=== PATIENT | female | born 1960 | race Caucasian/White ===

== ENCOUNTER 2017-03-10 17:49 | Inpatient (IN) | payer MEDICAID ==
[~2017-03-10] VITALS: Ht 152.4 cm; Wt 39.5 kg
[2017-03-10 08:00] VITALS: BP 99/60
--- NOTE | 2017-03-10 18:05 | NUR ---
BBRA FROM CLINIC FOR FLU LIKE SYMPTOMS SINCE WEDNESDAY. PATIENT RECEIVED AAO4. APPEARS IN NO APPARNT DISTRESS. AFEBRILE. VSS
[2017-03-10] MEDS ORDERED: IV NS 0.9% 1,000 ML BAG IV ONE ×2 (18:30→19:30)
[2017-03-10] MEDS ORDERED: ACETAMINOPHEN ES 500 MG TABLET PO ONE (18:30)
[2017-03-10] MEDS ORDERED: IBUPROFEN 600 MG TABLET PO ONE ×2 (18:30→18:40)
[2017-03-10] MEDS ORDERED: ACETAMINOPHEN ES 500 MG TABLET ONE ×2 (18:40→21:51)
[2017-03-10 18:45] LABS: BASOPHILS % (AUTO) 0.2 % (0.0-2.0); EOSINOPHILS # (AUTO) 0.2 /CMM (0.0-0.7); EOSINOPHILS % (AUTO) 0.8 % (0.0-6.0); HEMATOCRIT 36 % (33-45); HEMOGLOBIN 12.3 g/dL (11.5-14.8); LYMPHOCYTES # (AUTO) 1.5 /CMM (0.8-4.8); LYMPHOCYTES % (AUTO) 6.9 % (20.0-44.0); MEAN CORPUSCULAR HEMOGLOBIN 30 PG (26.0-33.0); MEAN CORPUSCULAR HGB CONC 34 g/dl (31.0-36.0); MEAN CORPUSCULAR VOLUME 88 fL (82-100); MONOCYTES # (AUTO) 1.2 /CMM (0.1-1.30); MONOCYTES % (AUTO) 5.7 % (2.0-12.0); NEUTROPHILS # (AUTO) 18.8 /CMM (1.8-8.9); NEUTROPHILS % (AUTO) 86.4 % (43.0-81.0); PLATELET COUNT (AUTO) 292 /CMM (150-450); RDW COEFFICIENT OF VARIATION 11.6 (11.5-15.0); RED BLOOD CELL COUNT(AUTO) 4.13 MIL/uL (4.0-5.2); WHITE BLOOD COUNT (AUTO) 21.7 K/uL (4.3-11.0)
[2017-03-10 18:48] LABS: APPEARANCE,URINE Clear (CLEAR); BILIRUBIN,URINE Negative (NEGATIVE); BLOOD, URINE Negative Ery/uL (NEGATIVE); COLOR,URINE Yellow (YELLOW); KETONES,URINE Negative (NEGATIVE); LEUKOCYTE ESTERASE ,URINE Negative (NEGATIVE); NITRITE, URINE Negative (NEGATIVE); PH,URINE 5.5 (5.0-8.0); PROTEIN,URINE 100 mg/dl (NEGATIVE); UGLUCOSE 500 MG/DL mg/dL (NEGATIVE)
--- NOTE | 2017-03-10 18:54 | NUR ---
BLOOD SAMPLE AND URINE SAMPLE SENT TO LAB
[2017-03-10 18:58] LABS: CALCIUM, SERUM 9.8 mg/dL (8.5-10.1); CARBON DIOXIDE 27 mmol/L (21-32); CHLORIDE 105 mmol/L (98-107); CREATININE 0.7 mg/dL (0.6-1.3); GLUCOSE 77 mg/dL (74-106); SODIUM SERUM 144 mmol/L (136-145); UREA NITROGEN, BLOOD 26 mg/dL (7-18)
[2017-03-10 19:01] LABS: POTASSIUM 2.8 mmol/L (3.5-5.1)
[2017-03-10 19:06] LABS: TROPONIN I < 0.017 ng/mL (0.00-0.056)
[2017-03-10 19:14] LABS: BACTERIA,URINE Few /HPF (None Seen); RBC,URINE 0-2 /HPF (0-2); SQUAMOUS EPITHELIAL CELL,UR Moderate /HPF (None Seen); WBC,URINE 0-2 /HPF (0-3)
[2017-03-10 19:15] LABS: ALANINE AMINOTRANSFERASE 28 U/L (12-78); ALBUMIN 4.2 g/dL (3.4-5.0); ASPARTATE AMINOTRANSFERASE 18 U/L (15-37); BILIRUBIN,TOTAL 0.2 mg/dL (0.2-1.0); TOTAL PROTEIN, SERUM 8.1 g/dL (6.4-8.2)
--- NOTE | 2017-03-10 19:16 | NUR ---
LACTIC ACID RESULTS BACK - 4.3. INFORMED.
[2017-03-10] MEDS ORDERED: METF500T4 PO (19:19)
[2017-03-10 19:20] LABS: ALKALINE PHOSPHATASE 129 U/L (46-116)
[2017-03-10] MEDS ORDERED: Magnesium 1 GM/2 ML VIAL IV ONE (19:30)
[2017-03-10] MEDS: POTASSIUM CL. PREMIX PERIPHER. 50 ML IV SCH ×2 (19:30→20:30)
[2017-03-10] MEDS ORDERED: OSELTAMIVIR PHOSPHATE 75 MG CAPSULE PO ONE (19:30)
[2017-03-10] MEDS ORDERED: PIPERACILLIN /TAZOBACTAM 3.375 G in IV D5W 50 ML IV ONE (19:30)
[2017-03-10] MEDS ORDERED: POTASSIUM CHLORIDE 20 MEQ TAB.PRT.SR PO ONE ×2 (19:30→19:48)
[2017-03-10] MEDS ORDERED: OSELTAMIVIR PHOSPHATE 75 MG CAPSULE ONE (20:08)
--- NOTE | 2017-03-10 20:11 | NUR ---
2ND LITER N/S HUNG. MEDICATIONS GIVEN. PT TO BE ADMITTED TO TELE BED 321-1, DR. CANALES'S SERVICE.
[2017-03-10] MEDS ORDERED: Magnesium 1GM/D5W 100ML PREMIX 100 ML IV ONE (20:49)
--- NOTE | 2017-03-10 20:54 | NUR ---
MAG MERCHANT. PREPARING PT FOR TRANSFER TO FLOOR.
[2017-03-10] MEDS ORDERED: ACETAMINOPHEN 325 MG TABLET PO PRN (21:00)
[2017-03-10] MEDS ORDERED: Z GUARD REMEDY 2 OZ OINT TP PRN (21:00)
[2017-03-10] MEDS ORDERED: MAGNESIUM HYDROXIDE 30 ML UDC PO PRN (21:00)
[2017-03-10] MEDS ORDERED: HYDROCODONE/APAP 5/325MG 1 EACH TABLET PO PRN (21:00)
[2017-03-10] MEDS ORDERED: ONDANSETRON HCL/PF 4 MG/2 ML VIAL IVP PRN (21:00)
[2017-03-10] MEDS ORDERED: MAG HYDROX/AL HYDROX/SIMETH 30 ML UDC PO PRN (21:00)
--- NOTE | 2017-03-10 21:44 | NUR ---
REPORT CALLED TO FLOOR Phan BOLES. PT TRANSFERRED TO FLOOR.
[2017-03-10 22:00] VITALS: BP 111/63
--- NOTE | 2017-03-10 22:10 | NUR ---
RN ADMITTING NOTES RECEIVED REPORT FROM SALON PROFESSIONALKRISTI. Pt ARRIVED TO FLOOR VIA ER [facility]. WAS ABLE TO AMBULATE FROM GURNEY TO ROOM BED WITH STEADY GAIT. Pt IS A/OX4, BULGARIAN SPEAKING, VERBAL, ABLE TO MAKE NEEDS KNOWN. IV ACCESS ON RAC #20G. NO S/S OF ACUTE DISTRESS OR SOB NOTED. SAFETY MEASURES IN PLACE. BED LOW, LOCKED, HOB ELEVATED, SIDE RAILS UP, CALL LIGHT AND BEDSIDE TABLE WITHIN REACH. WILL CONTINUE TO MONITOR Pt THROUGHOUT THE NIGHT FOR SAFETY.
--- NOTE | 2017-03-10 22:11 | NUR ---
RN NOTES Pt ALREADY RECEIVED 2 BAGS OF POTASSIUM CHLORIDE IN ER PRIOR TO ADMISSION ON 3W.
[2017-03-10 22:30] VITALS: BP 111/63
[2017-03-11] VITALS: BP 103/57
[2017-03-11] MEDS ORDERED: PIPERACILLIN /TAZOBACTAM 3.375 G VIAL IV ONE ×2 (00:30→05:08)
[2017-03-11] MEDS: PIPERACILLIN /TAZOBACTAM 3.375 G in IV D5W 50 ML IV SCH ×5 (02:03→23:10)
[2017-03-11] MEDS: IV NS 0.9% 1,000 ML IV PRN ×2 (02:03→23:47)
[2017-03-11 04:00] VITALS: BP 108/62
[2017-03-11 06:01] LABS: BASOPHILS % (AUTO) 0.2 % (0.0-2.0); HEMATOCRIT 30 % (33-45); LYMPHOCYTES % (AUTO) 26.5 % (20.0-44.0); MEAN CORPUSCULAR HEMOGLOBIN 30 PG (26.0-33.0); MEAN CORPUSCULAR HGB CONC 34 g/dl (31.0-36.0); MEAN CORPUSCULAR VOLUME 89 fL (82-100); MONOCYTES # (AUTO) 0.3 /CMM (0.1-1.30); MONOCYTES % (AUTO) 4.5 % (2.0-12.0); NEUTROPHILS # (AUTO) 5.2 /CMM (1.8-8.9); NEUTROPHILS % (AUTO) 68.8 % (43.0-81.0); PLATELET COUNT (AUTO) 201 /CMM (150-450); RDW COEFFICIENT OF VARIATION 12.5 (11.5-15.0); RED BLOOD CELL COUNT(AUTO) 3.32 MIL/uL (4.0-5.2); WHITE BLOOD COUNT (AUTO) 7.6 K/uL (4.3-11.0)
[2017-03-11 06:17] LABS: CALCIUM, SERUM 8.5 mg/dL (8.5-10.1); CREATININE 0.6 mg/dL (0.6-1.3); MAGNESIUM 2.1 mg/dL (1.8-2.4); PHOSPHORUS 4.2 mg/dL (2.5-4.9)
--- NOTE | 2017-03-11 06:30 | NUR ---
RN CLOSING NOTES NO SIGNIFICANT CHANGES IN Pt's CONDITION DURING THE NIGHT. NO S/S OF ACUTE DISTRESS OR SOB NOTED. Pt REMAINS STABLE AT THIS TIME. ALL NEEDS MET AND ATTENDED TO. SAFETY MEASURES IN PLACE. WILL ENDORSE TO DAYSHIFT RN FOR Pt's PO. TELE READING SR 89.
[2017-03-11 06:44] LABS: THYROID STIMULATING HORMONE 0.803 uIU/mL (0.358-3.74)
[2017-03-11] MEDS ORDERED: AZIT250T6 PO (06:49)
--- NOTE | 2017-03-11 07:25 | NUR ---
RN NOTES: RECEIVED PATIENT RESTING IN BED. NONLABORED BREATHING NOTED ON ROOM AIR. PATIENT AOX3. PATIENT DENIES PAIN. NO SIGNS OF DISTRESS. PATIENT ON TELE MONITORING WITH SINUS RHYTHM 89 NOTED. IV SITE PATENT AND INTACT. BED IN LOWEST LOCKED POSITION. CALL LIGHT WITHIN REACH. WILL CONTINUE TO MONITOR
[2017-03-11 08:00] VITALS: BP 99/60
--- NOTE | 2017-03-11 08:00 | NUR ---
ms bartholomew received on bed, awake,alert,oriented x2 , patient still nauseous, no sob noted, will monitor patient's condition. Addendum: 03/11/17 at 0926 by BECCA MACIAS RN disregard notes, wrong patient.
--- NOTE | 2017-03-11 08:10 | NUR ---
ms rn received on bed, awake,alert,oriented x4,not in any form of distress, respirations even and unlabored,no sob noted, lungs are clear,abdomen soft,positive bowel sounds, denies pain at this time, will monitor patient's condition.
[2017-03-11] MEDS ORDERED: METFORMIN 500 MG TABLET PO SCH (09:00)
[2017-03-11] MEDS ORDERED: OSELTAMIVIR PHOSPHATE 75 MG CAPSULE PO SCH (09:00)
--- NOTE | 2017-03-11 09:15 | NUR ---
MS MORRISSEY BREAKFAST SERVED,DUE MEDS GIVEN,TOLERATED WELL.
--- NOTE | 2017-03-11 09:15 | NUR ---
ms bartholomew refused breakfast, for dialysis today.. Addendum: 03/11/17 at 0929 by BECCA MACIAS RN wrong pt, disregard pt.
[2017-03-11] MEDS: OSELTAMIVIR PHOSPHATE 75 MG CAPSULE PO SCH ×2 (13:11→17:18)
[2017-03-11] MEDS ORDERED: *INSULIN REGULAR(HUMULIN R)HUM 100 UNIT/ML VIAL SQ PRN (14:30)
[2017-03-11] MEDS ORDERED: DEXTROSE 50%-WATER 50 ML DISP.SYRIN IV PRN (14:30)
--- NOTE | 2017-03-11 14:37 | NUR ---
MS RN WAS SEEN BY DR. CHILANGO Boucher/ ORDERS MADE AND CARRIED OUT.
[2017-03-11] MEDS: INSULIN REGULAR, HUMAN 100 UNIT/ML 3 ML VIAL SQ PRN (14:48)
[2017-03-11] MEDS: BLOOD SUGAR DIAGNOSTIC 1 EACH STRIP VI SCH ×3 (14:57→21:01)
[2017-03-11] MEDS ORDERED: diphenhydrAMINE HCL 50 MG/ML VIAL IV PRN (15:00)
[2017-03-11 16:00] VITALS: BP 99/65
[2017-03-11] MEDS: METFORMIN 500 MG TABLET PO SCH (17:19)
--- NOTE | 2017-03-11 17:30 | NUR ---
MS MORRISSEY BS - 223 - REFUSED COVERAGE, ON METFORMIN PO.
--- NOTE | 2017-03-11 18:55 | NUR ---
MS RN ON BED, NO DISTRESS NOTED.
--- NOTE | 2017-03-11 19:15 | NUR ---
MS RN OPENING NOTES: RECEIVED PT ON BED AND IS SITTING UP IN BED. PT IS AWAKE AND A/OX3-4. PT ON PHONE AT THE MOMENT. NO SOB NOTED. NO S/S OF DISTRESS NOTED AT THIS TIME. PT HAS IV ON R AC #20G AND IS BEING IN FUSED WITH NS AT 75ML/HR. CALL LIGHT WITHIN PT'S REACH. BED KEPT IN LOW, LOCKED POSITION, AND SIDE RAILS X 2UP. WILL CONTINUE TO MONITOR PT.
[2017-03-11 20:00] VITALS: BP 105/59
--- NOTE | 2017-03-11 21:10 | NUR ---
MS RN NOTES: BLOOD SUGAR WAS 222. 4 UNITS OF INSULIN WAS ADMINISTERED. WILL CONTINUE TO MONITOR PT.
[2017-03-12] MEDS: PIPERACILLIN /TAZOBACTAM 3.375 G in IV D5W 50 ML IV SCH ×2 (05:01→12:15)
[2017-03-12] MEDS: BLOOD SUGAR DIAGNOSTIC 1 EACH STRIP VI SCH ×2 (06:01→11:57)
[2017-03-12] MEDS: INSULIN REGULAR, HUMAN 100 UNIT/ML 3 ML VIAL SQ PRN ×2 (06:31→12:28)
--- NOTE | 2017-03-12 06:35 | NUR ---
MS RN NOTES: BLOOD SUGAR WAS 153. 2 UNITS OF INSULIN WAS ADMINISTERED. WILL CONTINUE TO MONITOR PT.
--- NOTE | 2017-03-12 06:46 | NUR ---
MS RN CLOSING NOTES: ALL NEEDS WERE ATTENDED AND ANTICIPATED FOR. PT IS RESTING AND SLEEPING IN BED COMFORTABLY. PT IS A/OX3-4 AND IS YEMENI SPEAKING/UNDERSTANDING ONLY. PT CAN UNDERSTAND SOME TRINIDADIAN WELL. NO SOB NOTED. NO S/S OF DISTRESS NOTED AT THIS TIME. PT HAS IV ON R AC #20G AND IS BEING IN FUSED WITH NS AT 75ML/HR. CALL LIGHT WITHIN PT'S REACH. BED KEPT IN LOW, LOCKED POSITION, AND SIDE RAILS X 2UP. WILL ENDORSE TO AM NURSE FOR PO.
--- NOTE | 2017-03-12 07:33 | NUR ---
MS/RN OPENING NOTE PATIENT IN BED IN STABLE CONDITION. A/O X 3, DANISH SPEAKING. NO SIGNS OF ACUTE DISTRESS. NO COMPLAIN OF PAIN OR DISCOMFORT. ALL NEEDS ATTENDED TO. CALL LIGHT WITHIN REACH. WILL CONTINUE TO MONITOR TO ENSURE SAFETY.
[2017-03-12 07:52] LABS: BASOPHILS % (AUTO) 0.4 % (0.0-2.0); EOSINOPHILS % (AUTO) 0.7 % (0.0-6.0); HEMATOCRIT 30 % (33-45); HEMOGLOBIN 10.3 g/dL (11.5-14.8); LYMPHOCYTES # (AUTO) 2.1 /CMM (0.8-4.8); LYMPHOCYTES % (AUTO) 32.4 % (20.0-44.0); MEAN CORPUSCULAR HEMOGLOBIN 30 PG (26.0-33.0); MEAN CORPUSCULAR HGB CONC 35 g/dl (31.0-36.0); MEAN CORPUSCULAR VOLUME 88 fL (82-100); MONOCYTES # (AUTO) 0.3 /CMM (0.1-1.30); MONOCYTES % (AUTO) 4.7 % (2.0-12.0); NEUTROPHILS % (AUTO) 61.8 % (43.0-81.0); PLATELET COUNT (AUTO) 212 /CMM (150-450); RDW COEFFICIENT OF VARIATION 12.3 (11.5-15.0); RED BLOOD CELL COUNT(AUTO) 3.37 MIL/uL (4.0-5.2); WHITE BLOOD COUNT (AUTO) 6.5 K/uL (4.3-11.0)
[2017-03-12 08:00] VITALS: BP 116/68
[2017-03-12 08:09] LABS: CALCIUM, SERUM 8.5 mg/dL (8.5-10.1); CREATININE 0.6 mg/dL (0.6-1.3); MAGNESIUM 1.8 mg/dL (1.8-2.4); PHOSPHORUS 4.4 mg/dL (2.5-4.9); POTASSIUM 3.8 mmol/L (3.5-5.1)
[2017-03-12] MEDS: OSELTAMIVIR PHOSPHATE 75 MG CAPSULE PO SCH (08:11)
[2017-03-12] MEDS: METFORMIN 500 MG TABLET PO SCH (08:11)
--- NOTE | 2017-03-12 15:10 | NUR ---
MS/HUMAN RESOURCE ANALYST PATIENT DISCHARGE HOME IN STABLE CONDITION. A/O X 3, MALTESE SPEAKING. NO SIGNS OF ACUTE DISTRESS. NO COMPLAIN OF PAIN OR DISCOMFORT. DISCHARGE INSTRUCTIONS AND EDUCATION PROVIDED TO PATIENT AND PATIENT'S DAUGHTER VERBALIZED UNDERSTANDING. ALSO MADE AWARE TO FOLLOW UP WITH PRIMARY PHYSICIAN WITHIN A WEEK. VERBALIZED UNDERSTANDING. NAME BAND AND IV LINE REMOVED. ALL NEEDS ATTENDED TO. LEFT VIA PRIVATE CAR IN STABLE CONDITION ACCOMPANIED BY DAUGHTER.
== END 2017-03-12 15:45 | disposition home or self-care (01) | DRG 720 ==
LOC: ER 17:50 → TELE 20:08 → MED 03-11 11:23
PROVIDERS: ADMIT Nurse Practitioner Acute Care; ATTEND Nurse Practitioner Acute Care
DX: A41.9 Sepsis, unspecified organism (principal); N17.0 Acute kidney failure with tubular necrosis; E87.2 Acidosis; R65.20 Severe sepsis without septic shock; E11.65 Type 2 diabetes mellitus with hyperglycemia; E87.6 Hypokalemia; R53.1 Weakness; Z79.84 Long term (current) use of oral hypoglycemic drugs
CPT/HCPCS: 36415; 71010-TC; 80048-TC; 80061-TC; 80076-TC; 81000-TC; 82962-TC; 83605-TC; 83735-TC; 84100-TC; 84443-TC; 84484-TC; 85025-TC; 87040-TC; 87081-TC; 87400; J1815; J2543; J3475; J7030; J7060; Z7610